=== PATIENT | male | born 1990 | race Caucasian/White ===

== ENCOUNTER 2020-08-20 14:16 | Emergency (ER) | payer MEDICAID ==
[~2020-08-20] VITALS: Ht 175.3 cm; Wt 76.7 kg
[2020-08-20 14:21] VITALS: BP_SYST 169
[2020-08-20] MEDS ORDERED: DIAZEPAM 10 MG/2 ML DISP.SYRIN IVP ONE (14:45)
[2020-08-20] MEDS ORDERED: NS 1000 ML IV.SOLN IV ONE (14:45)
[2020-08-20] MEDS ORDERED: LORazepam 2 MG/ML VIAL IVP ONE (14:45)
[2020-08-20 15:35] VITALS: BP_SYST 167
== END 2020-08-20 15:35 | disposition home or self-care (01) ==
LOC: SED 14:16
DX: R00.0 Tachycardia, unspecified (principal); R03.0 Elevated blood-pressure reading, without diagnosis of hypertension; F15.10 Other stimulant abuse, uncomplicated; I10 Essential (primary) hypertension
CPT/HCPCS: 96361; 96374; 99283; J2060; J7030

== ENCOUNTER 2020-11-18 04:45 | Emergency (ER) | payer MEDICAID ==
[~2020-11-18] VITALS: Ht 175.3 cm; Wt 77.1 kg
[2020-11-18 04:48] VITALS: BP_SYST 159
[2020-11-18] MEDS ORDERED: cefTRIAXone 1 GM in LIDOCAINE 1%, 20 ML MDV 2.1 ML IM ONE (05:00)
[2020-11-18 05:31] VITALS: BP_SYST 150
== END 2020-11-18 05:31 | disposition home or self-care (01) ==
LOC: SED 04:45
DX: M79.641 Pain in right hand (principal); I10 Essential (primary) hypertension
CPT/HCPCS: 73130; 96372; 99283; J0696; J2001